=== PATIENT | female | born 1985 | race African-American/Black ===

== ENCOUNTER 2017-12-18 00:45 | Emergency (ER) | payer MEDICAID ==
[~2017-12-18] VITALS: Ht 167.6 cm; Wt 60.0 kg
[2017-12-18 00:46] VITALS: BP 126/85
[2017-12-18] MEDS ORDERED: LIDOCAINE-MPF 2%, 2ML ONE (01:01)
[2017-12-18] MEDS ORDERED: BUPIVACAINE 0.25% ONE (01:01)
== END 2017-12-18 01:35 | disposition home or self-care (01) ==
LOC: ED 01:00
DX: K04.7 Periapical abscess without sinus (principal); K02.9 Dental caries, unspecified; F12.90 Cannabis use, unspecified, uncomplicated
CPT/HCPCS: 64402; 99284

== ENCOUNTER 2019-05-14 12:01 | Emergency (ER) | payer MEDICAID ==
[~2019-05-14] VITALS: Ht 167.6 cm; Wt 59.0 kg
[2019-05-14] MEDS ORDERED: HYDROcodone/APAP 5/325 TABLET PO ONE (12:30)
[2019-05-14] MEDS ORDERED: HYDROcodone/APAP 5/325 TABLET ONE (12:30)
--- NOTE | 2019-05-14 12:32 | NUR ---
PT MEDICATED FOR PAIN PER JUL. PA TO BEDSIDE TO APPLY BONE WAX
[2019-05-14 13:45] VITALS: BP 111/72
--- NOTE | 2019-05-14 14:03 | NUR ---
pt reports pain resolved completely. pt given dc instructions and script, educated regarding rx for amoxicillin and naproxen. pt requests rx for ibuprofen, serafin christie notified. edpa agreed to change rx, pt informed. pt became frustruated while waiting and left before rx was changed. pt a&o, resps even and unlabored, amb to dc desk wtih steady gait accompanied by friend who is to drive her home.
== END 2019-05-14 14:04 | disposition home or self-care (01) ==
LOC: ED 13:58
DX: K08.89 Other specified disorders of teeth and supporting structures (principal)
CPT/HCPCS: 99283

== ENCOUNTER 2019-11-02 10:51 | Emergency (ER) | payer MEDICAID ==
[~2019-11-02] VITALS: Ht 167.6 cm; Wt 57.9 kg
[2019-11-02 11:08] VITALS: BP 134/83
--- NOTE | 2019-11-02 11:24 | NUR ---
PT HAS CO VB SINCE LAST NIGHT AFTER INTERCOURSE. PT LMP OCTOBER 05, TOOK PREG TEST AND WAS POSITIVE. DENIES CLOTS OR CRAMPING. LIGHT BLOOD THIS AM. PT NOT IN DISTRESS. PT DENIES PAIN OR DIZZINESS
[2019-11-02 11:48] LABS: BASOPHILS # (AUTO) 0.01 x10^3/uL (0-0.1); BASOPHILS % (AUTO) 0 % (0-1); EOSINOPHILS # (AUTO) 0.07 x10^3/uL (0-0.4); EOSINOPHILS % (AUTO) 1 % (1-7); LYMPHOCYTES # (AUTO) 1.29 x10^3/uL (1-3.4); LYMPHOCYTES % (AUTO) 22 % (22-44); MD NO; MEAN CORPUSCULAR HEMOGLOBIN 30.6 pg (27.0-34.8); MEAN CORPUSCULAR HGB CONC 33.2 g/dL (32.4-35.8); MEAN PLATELET VOLUME 7.4 fL (7.4-10.4); MONOCYTES % (AUTO) 9 % (2-9); NEUTROPHILS # (AUTO) 3.88 x10^3/uL (1.8-6.8); NEUTROPHILS % (AUTO) 68 % (42-75); PLATELET COUNT 297 x10^3/uL (130-400); RED BLOOD COUNT 4.89 x10^6/uL (3.82-5.3); RED CELL DISTRIBUTION WIDTH 13.5 % (9.6-15.2)
--- NOTE | 2019-11-02 12:30 | NUR ---
labs complete, us in process. pt resting
[2019-11-02 12:47] LABS: MICROSCOPIC AUTO
--- NOTE | 2019-11-02 13:47 | NUR ---
Patient/Caregiver given discharge instructions and they have confirmed that they understand the instructions. Patient ambulatory with steady gait.
== END 2019-11-02 13:49 | disposition home or self-care (01) ==
LOC: ED 11:58
DX: O20.0 Threatened abortion (principal); Z3A.00 Weeks of gestation of pregnancy not specified
CPT/HCPCS: 36415; 76801; 81001; 84702; 85025; 86901; 87086; 99284

== ENCOUNTER 2019-12-05 19:18 | Emergency (ER) | payer MEDICAID ==
[~2019-12-05] VITALS: Ht 167.6 cm; Wt 57.0 kg
[2019-12-05] MEDS ORDERED: ACETAMINOPHEN 325 MG TABLET PO ONE (19:30)
[2019-12-05] MEDS ORDERED: ONDA4TAB13 PO (19:33)
[2019-12-05] MEDS ORDERED: PRENATAL VITAMIN (19:33)
--- NOTE | 2019-12-05 19:33 | NUR ---
PT REPORTS SHE'S BEEN TAKING ZOFRAN 1 TAB PO Q 3 HOURS. RX DOSIN TAB PO Q 8 HOUR. LAST DOSE AT 1730. C/O LLQ CRAMPING, VAG BLEED (STARTED W/ DRIED BLOOD, THEN BRIGHT RED SPOTTING). HAD SONOGRAM 12/01/19 - NO PROBLEMS NOTED AT THAT TIME. OB APPT PENDING IN TWO WEEKS.
--- NOTE | 2019-12-05 19:39 | NUR ---
PT NOTIFIED OF NEED FOR URINE SPECIMEN; DENIES URGE TO VOID, AT THIS TIME. PT REFUSED PAIN MED, AT THIS TIME.
[2019-12-05 19:50] LABS: BASOPHILS # (AUTO) 0.06 x10^3/uL (0-0.1); BASOPHILS % (AUTO) 1 % (0-1); EOSINOPHILS # (AUTO) 0.09 x10^3/uL (0-0.4); EOSINOPHILS % (AUTO) 1 % (1-7); LYMPHOCYTES # (AUTO) 1.47 x10^3/uL (1-3.4); LYMPHOCYTES % (AUTO) 16 % (22-44); MD NO; MEAN CORPUSCULAR HGB CONC 32.2 g/dL (32.4-35.8); MEAN CORPUSCULAR VOLUME 93.3 fL (80-100); MONOCYTES # (AUTO) 0.82 x10^3/uL (0.2-0.8); MONOCYTES % (AUTO) 9 % (2-9); NEUTROPHILS # (AUTO) 6.67 x10^3/uL (1.8-6.8); NEUTROPHILS % (AUTO) 73 % (42-75); PLATELET COUNT 339 x10^3/uL (130-400); RED BLOOD COUNT 4.26 x10^6/uL (3.82-5.3); RED CELL DISTRIBUTION WIDTH 13.5 % (9.6-15.2)
[2019-12-05 20:04] LABS: ALBUMIN 3.2 g/dL (3.4-5.0); ANION GAP 8 mmol/L (5-15); CALCIUM 8.4 mg/dL (8.5-10.1); CHLORIDE 103 mmol/L (98-107)
--- NOTE | 2019-12-05 20:26 | NUR ---
TO U/S PER GUERRERO
[2019-12-05 20:56] LABS: MICROSCOPIC INDICATED
[2019-12-05 21:55] VITALS: BP 126/88
== END 2019-12-05 21:57 | disposition home or self-care (01) ==
LOC: ED 21:30
DX: O20.0 Threatened abortion (principal); O23.11 Infections of bladder in pregnancy, first trimester; Z3A.08 8 weeks gestation of pregnancy
CPT/HCPCS: 36415; 76801; 80048; 81001; 82040; 84702; 85025; 86901; 87086; 99284

== ENCOUNTER 2020-01-02 17:16 | Emergency (ER) | payer MEDICAID ==
[~2020-01-02] VITALS: Ht 170.2 cm; Wt 68.2 kg
[~2020-01-02 17:16] MED LIST: ONDA4TAB13 PO; PRENATAL VITAMIN
[2020-01-02] MEDS ORDERED: SODIUM CHLORIDE 0.9% 1,000 ML IV ONE (17:46)
[2020-01-02] MEDS ORDERED: ONDANSETRON 2MG/ML, 2ML IVPush ONE (18:00)
[2020-01-02] MEDS ORDERED: SODIUM CHLORIDE 0.9% 1,000ML IVBOLUS ONE (18:00)
[2020-01-02] MEDS ORDERED: SODIUM CHLORIDE FLUSH 10ML SYR IVF ONE (18:00)
[2020-01-02] MEDS ORDERED: ONDANSETRON 2MG/ML, 2ML ONE (18:04)
[2020-01-02 18:08] LABS: BASOPHILS # (AUTO) 0.01 x10^3/uL (0-0.1); BASOPHILS % (AUTO) 0 % (0-1); EOSINOPHILS # (AUTO) 0.03 x10^3/uL (0-0.4); EOSINOPHILS % (AUTO) 0 % (1-7); LYMPHOCYTES # (AUTO) 1.15 x10^3/uL (1-3.4); LYMPHOCYTES % (AUTO) 14 % (22-44); MD NO; MEAN CORPUSCULAR HEMOGLOBIN 30.2 pg (27.0-34.8); MEAN CORPUSCULAR HGB CONC 33.3 g/dL (32.4-35.8); MEAN CORPUSCULAR VOLUME 90.7 fL (80-100); MEAN PLATELET VOLUME 7.3 fL (7.4-10.4); MONOCYTES # (AUTO) 0.68 x10^3/uL (0.2-0.8); MONOCYTES % (AUTO) 8 % (2-9); NEUTROPHILS # (AUTO) 6.41 x10^3/uL (1.8-6.8); NEUTROPHILS % (AUTO) 78 % (42-75); PLATELET COUNT 348 x10^3/uL (130-400); RED BLOOD COUNT 4.64 x10^6/uL (3.82-5.3); RED CELL DISTRIBUTION WIDTH 13.3 % (9.6-15.2)
[2020-01-02 18:20] LABS: ALANINE AMINOTRANSFERASE 39 U/L (12-78); ALBUMIN 3.1 g/dL (3.4-5.0); ANION GAP 10 mmol/L (5-15); CALCIUM 8.7 mg/dL (8.5-10.1); CHLORIDE 106 mmol/L (98-107); CREATININE 0.67 mg/dL (0.55-1.02)
[2020-01-02 18:22] LABS: ALKALINE PHOSPHATASE 60 U/L (45-117); BILIRUBIN,TOTAL 0.5 mg/dL (0.2-1.0); TOTAL PROTEIN 6.5 g/dL (6.4-8.2)
[2020-01-02] MEDS ORDERED: METOCLOPRAMIDE 5 MG/ML, 2ML ONE (19:45)
[2020-01-02 19:59] LABS: MICROSCOPIC INDICATED
[2020-01-02] MEDS ORDERED: METOCLOPRAMIDE 5 MG/ML, 2ML IVPush ONE (20:00)
--- NOTE | 2020-01-02 21:00 | NUR ---
PT ABLE TO KEEP DOWN H2O. PT STATES SHE IS FEELING BETTER AFTER THE REGLAN. PROVIDER UPDATED.
--- NOTE | 2020-01-02 21:10 | NUR ---
assumed care of pt. report from Radhames ROSENTHAL. pt is and has been having N/V. pt has tolerated PO challenge after meds and reports that she is feeling better. no vomiting at this time. resting in position of comfort. IV infusing. no vaginal bleeding, no pain. no family at bedside
[2020-01-02 22:50] VITALS: BP 115/69
== END 2020-01-02 22:57 | disposition home or self-care (01) ==
LOC: ED 19:29
DX: O21.9 Vomiting of pregnancy, unspecified (principal); R10.84 Generalized abdominal pain; I10 Essential (primary) hypertension; Z3A.12 12 weeks gestation of pregnancy
CPT/HCPCS: 36415; 76801; 80053; 81001; 85025; 87086; 96361; 96374; 96375; 99285; J2405; J2765; J7030

== ENCOUNTER 2020-06-02 07:29 | Inpatient (IN) | payer MEDICAID ==
[~2020-06-02] VITALS: Ht 167.6 cm; Wt 69.0 kg
[2020-06-02] MEDS ORDERED: OXYTOCIN 30U/ 0.9% NaCL 500ML 500 ML ONE ×3 (07:49→20:24)
[2020-06-02] MEDS ORDERED: METOCLOPRAMIDE 5 MG/ML, 2ML IV ONE (08:00)
[2020-06-02] MEDS ORDERED: SODIUM CITRATE/CITRIC ACID 30 ML UDC PO ONE (08:00)
[2020-06-02] MEDS ORDERED: LACTATED RINGERS 1,000 ML IVBOLUS ONE (08:00)
[2020-06-02] MEDS ORDERED: NEWBORN KIT ONE (08:04)
[2020-06-02] MEDS ORDERED: SODIUM CITRATE/CITRIC ACID 15 ML UDC ONE (08:08)
[2020-06-02] MEDS ORDERED: METOCLOPRAMIDE 5 MG/ML, 2ML ONE (08:08)
[2020-06-02] MEDS ORDERED: PLEASE ENTER HEIGHT AND WEIGHT MC SCH (08:30)
[2020-06-02] MEDS ORDERED: morphine SULFATE/PF 0.5 MG/ML, 10ML ONE (08:30)
[2020-06-02 08:31] LABS: BASOPHILS % (AUTO) 1 % (0-1); EOSINOPHILS % (AUTO) 1 % (1-7); LYMPHOCYTES % (AUTO) 17 % (22-44); MEAN CORPUSCULAR HEMOGLOBIN 26.5 pg (27.0-34.8); MEAN CORPUSCULAR HGB CONC 32.5 g/dL (32.4-35.8); MEAN PLATELET VOLUME 7.4 fL (7.4-10.4); MONOCYTES % (AUTO) 10 % (2-9); NEUTROPHILS % (AUTO) 72 % (42-75); PLATELET COUNT 370 x10^3/uL (130-400); RED CELL DISTRIBUTION WIDTH 15.3 % (9.6-15.2)
[2020-06-02] MEDS ORDERED: DEXAMETHASONE 4 MG/ML, 1ML ONE (08:32)
[2020-06-02] MEDS ORDERED: CEFAZOLIN 1,000 MG ONE (08:32)
[2020-06-02] MEDS ORDERED: KETOROLAC 30 MG/1 ML ONE ×3 (08:32→23:16)
[2020-06-02] MEDS ORDERED: ONDANSETRON 2MG/ML, 2ML ONE (08:32)
[2020-06-02] MEDS ORDERED: SODIUM CHLORIDE 0.9% PF 10ML ONE (08:32)
[2020-06-02] MEDS ORDERED: OXYTOCIN 10 UNITS/ML, 1ML ONE (08:32)
[2020-06-02 08:38] LABS: MD NO
[2020-06-02] MEDS ORDERED: BUPIVACAINE 0.75% PF 10ML ONE (08:46)
[2020-06-02] MEDS ORDERED: MIDAZOLAM 1 MG/ML, 2ML ONE (08:48)
[2020-06-02] MEDS ORDERED: SIMETHICONE 80 MG CHEW TAB PO PRN (10:00)
[2020-06-02] MEDS ORDERED: morphine SULFATE 10 MG/ML, 1ML IVPush PRN (10:00)
[2020-06-02] MEDS ORDERED: TRANEXAMIC ACID 1,000 MG in SODIUM CHLORIDE 0.9% 100 ML IVPB ONE (10:00)
[2020-06-02] MEDS ORDERED: MORPHINE SULFATE 4 MG/ML, 1ML IVPush PRN (10:00)
[2020-06-02] MEDS: LACTATED RINGERS 1,000 ML IV SCH ×6 (10:00→20:00)
[2020-06-02] MEDS ORDERED: MISOPROSTOL 200 MCG TABLET SL PRN (10:00)
[2020-06-02] MEDS ORDERED: METHYLERGONOVINE 0.2 MG/ML IM PRN (10:00)
[2020-06-02] MEDS ORDERED: CARBOPROST TROMETHAMINE 250 MCG/ML, 1ML IM PRN (10:00)
[2020-06-02 10:02] VITALS: BP 124/76
[2020-06-02 10:24] LABS: AMPHETAMINE SCREEN, URINE Negative (Negative); BARBITURATE SCREEN, URINE Negative (Negative); BENZODIAZEPINE SCREEN, URINE Negative (Negative); CANNABINOID SCREEN, URINE Positive (Negative); COCAINE SCREEN, URINE Negative (Negative); METHADONE SCREEN, URINE Negative (Negative); OPIATE SCREEN, URINE Negative (Negative)
[2020-06-02 11:22] LABS: ALBUMIN 2.5 g/dL (3.4-5.0); ANION GAP 9 mmol/L (5-15); CALCIUM 8.9 mg/dL (8.5-10.1); CHLORIDE 109 mmol/L (98-107)
[2020-06-02] MEDS ORDERED: LABETALOL 5MG/ML, 20ML ONE (11:22)
[2020-06-02] MEDS ORDERED: MAGNESIUM SULF. PMX 20GM/500ML 500 ML IV ONE ×2 (11:23→20:24)
[2020-06-02] MEDS ORDERED: MAGNESIUM SULFATE PMX 4GM/100M 100 ML ONE (11:23)
[2020-06-02 11:25] LABS: ALANINE AMINOTRANSFERASE 35 U/L (12-78); ALKALINE PHOSPHATASE 194 U/L (45-117); BILIRUBIN,TOTAL 0.5 mg/dL (0.2-1.0); CREATININE 0.95 mg/dL (0.55-1.02); TOTAL PROTEIN 5.9 g/dL (6.4-8.2)
[2020-06-02] MEDS ORDERED: MAGNESIUM SULFATE PMX 4GM/100M 100 ML IVPB ONE ×2 (11:30)
[2020-06-02] MEDS ORDERED: hydrALAzine 20 MG/ML, 1ML IVPush ONE (11:30)
[2020-06-02] MEDS ORDERED: MAGNESIUM SULFATE PMX 2GM/50ML 50 ML IVPB ONE (11:30)
[2020-06-02] MEDS ORDERED: LABETALOL 5MG/ML, 20ML IVPush PRN ×3 (11:30)
[2020-06-02] MEDS: OXYTOCIN 30U/ 0.9% NaCL 500ML 500 ML IV SCH ×2 (11:30→21:23)
[2020-06-02] MEDS ORDERED: OXYcodone 5 MG/5 ML ORAL.SOL UDC ONE (11:57)
[2020-06-02] MEDS ORDERED: OXYcodone 5 MG/5 ML ORAL.SOL UDC PO PRN (12:00)
[2020-06-02] MEDS: MAGNESIUM SULF. PMX 20GM/500ML 500 ML IV SCH ×2 (12:05→21:30)
[2020-06-02] MEDS: PRENATAL VIT/IRON/FA 1 EACH TABLET PO SCH (13:13)
[2020-06-02] MEDS ORDERED: OXYcodone IR 5MG TABLET ONE ×2 (16:27→23:23)
[2020-06-02] MEDS: OXYcodone IR 5MG TABLET PO PRN ×2 (16:35→23:25)
[2020-06-02] MEDS: KETOROLAC 30 MG/1 ML IV SCH ×2 (16:36→23:19)
[2020-06-02 17:37] LABS: BASOPHILS % (AUTO) 0 % (0-1); EOSINOPHILS % (AUTO) 0 % (1-7); LYMPHOCYTES % (AUTO) 5 % (22-44); MD NO; MEAN CORPUSCULAR HEMOGLOBIN 26.5 pg (27.0-34.8); MEAN CORPUSCULAR HGB CONC 32.6 g/dL (32.4-35.8); MEAN PLATELET VOLUME 7.6 fL (7.4-10.4); MONOCYTES % (AUTO) 5 % (2-9); NEUTROPHILS % (AUTO) 90 % (42-75); PLATELET COUNT 368 x10^3/uL (130-400); RED BLOOD COUNT 4.03 x10^6/uL (3.82-5.3); RED CELL DISTRIBUTION WIDTH 15.7 % (9.6-15.2)
[2020-06-02 19:15] VITALS: BP 139/83
[2020-06-02 20:25] VITALS: BP 141/89
[2020-06-02 21:25] VITALS: BP 136/89
[2020-06-02 22:25] VITALS: BP 158/95
[2020-06-02] MEDS ORDERED: OXYcodone/APAP 5/325MG TABLET ONE (23:15)
[2020-06-02 23:30] VITALS: BP 145/91
[2020-06-03] VITALS (12 sets, daily range): BP systolic 131–157; BP diastolic 85–99
[2020-06-03] MEDS: LACTATED RINGERS 1,000 ML IV SCH ×7 (02:00→18:00)
[2020-06-03] MEDS ORDERED: OXYcodone IR 5MG TABLET ONE (03:59)
[2020-06-03] MEDS: KETOROLAC 30 MG/1 ML IV SCH ×4 (04:00→11:56)
[2020-06-03] MEDS: OXYcodone IR 5MG TABLET PO PRN ×4 (04:01→21:43)
[2020-06-03] MEDS ORDERED: KETOROLAC 30 MG/1 ML ONE (05:02)
[2020-06-03] MEDS: OXYTOCIN 30U/ 0.9% NaCL 500ML 500 ML IV SCH ×2 (06:00→16:00)
[2020-06-03 06:24] LABS: BASOPHILS % (AUTO) 1 % (0-1); EOSINOPHILS % (AUTO) 0 % (1-7); LYMPHOCYTES % (AUTO) 6 % (22-44); MEAN CORPUSCULAR HEMOGLOBIN 26.5 pg (27.0-34.8); MEAN CORPUSCULAR HGB CONC 33.1 g/dL (32.4-35.8); MEAN PLATELET VOLUME 7.5 fL (7.4-10.4); MONOCYTES % (AUTO) 8 % (2-9); NEUTROPHILS % (AUTO) 85 % (42-75); PLATELET COUNT 346 x10^3/uL (130-400); RED BLOOD COUNT 3.66 x10^6/uL (3.82-5.3); RED CELL DISTRIBUTION WIDTH 15.7 % (9.6-15.2)
[2020-06-03 06:31] LABS: ALANINE AMINOTRANSFERASE 33 U/L (12-78); ANION GAP 10 mmol/L (5-15); CHLORIDE 107 mmol/L (98-107); CREATININE 0.62 mg/dL (0.55-1.02); MD NO
[2020-06-03 06:33] LABS: ALKALINE PHOSPHATASE 182 U/L (45-117); BILIRUBIN,TOTAL 0.3 mg/dL (0.2-1.0); TOTAL PROTEIN 5.4 g/dL (6.4-8.2)
[2020-06-03] MEDS ORDERED: MAGNESIUM SULF. PMX 20GM/500ML 500 ML IV ONE (06:59)
[2020-06-03] MEDS: MAGNESIUM SULF. PMX 20GM/500ML 500 ML IV SCH (07:03)
[2020-06-03] MEDS ORDERED: LABETALOL 100 MG TABLET ONE (07:33)
[2020-06-03] MEDS: LABETALOL 100 MG TABLET PO SCH ×2 (07:35→17:43)
[2020-06-03] MEDS: PRENATAL VIT/IRON/FA 1 EACH TABLET PO SCH (09:00)
[2020-06-03] MEDS ORDERED: IBUPROFEN 600 MG TABLET ONE (12:00)
[2020-06-03] MEDS: IBUPROFEN 800 MG TABLET PO PRN ×2 (12:00→20:36)
[2020-06-03] MEDS ORDERED: IBUPROFEN 800 MG TABLET ONE (12:04)
[2020-06-04] MEDS: OXYTOCIN 30U/ 0.9% NaCL 500ML 500 ML IV SCH ×2 (02:00→12:00)
[2020-06-04] MEDS: LACTATED RINGERS 1,000 ML IV SCH ×5 (02:00→17:57)
[2020-06-04] MEDS: OXYcodone IR 5MG TABLET PO PRN ×4 (02:21→19:59)
[2020-06-04] MEDS: ACETAMINOPHEN 325 MG TABLET PO PRN ×4 (02:21→19:57)
[2020-06-04 02:24] VITALS: BP 143/96
[2020-06-04] MEDS: IBUPROFEN 800 MG TABLET PO PRN ×2 (05:49→14:14)
[2020-06-04 05:51] VITALS: BP 147/99
[2020-06-04 08:25] VITALS: BP 156/99
[2020-06-04] MEDS: LABETALOL 100 MG TABLET PO SCH ×2 (08:35→18:04)
[2020-06-04] MEDS: PRENATAL VIT/IRON/FA 1 EACH TABLET PO SCH (08:36)
[2020-06-04] MEDS: DOCUSATE 100 MG CAPSULE PO PRN ×2 (08:36→19:57)
[2020-06-04 09:51] VITALS: BP 131/88
[2020-06-04] MEDS ORDERED: IBUPROFEN 800 MG TABLET PO PRN (10:00)
[2020-06-04 18:00] VITALS: BP 152/100
[2020-06-04 21:00] VITALS: BP 135/88
[2020-06-05] VITALS (9 sets, daily range): BP systolic 147–166; BP diastolic 99–114
[2020-06-05] MEDS: OXYcodone IR 5MG TABLET PO PRN ×6 (01:02→20:10)
[2020-06-05] MEDS: IBUPROFEN 800 MG TABLET PO PRN ×2 (01:02→13:11)
[2020-06-05] MEDS: ACETAMINOPHEN 325 MG TABLET PO PRN ×5 (05:04→20:09)
[2020-06-05] MEDS ORDERED: LABETALOL 100 MG TABLET PO SCH (06:30)
[2020-06-05] MEDS: DOCUSATE 100 MG CAPSULE PO PRN ×2 (08:00→19:23)
[2020-06-05] MEDS ORDERED: LABETALOL 200 MG TABLET ONE (08:58)
[2020-06-05] MEDS ORDERED: LABETALOL 200 MG TABLET PO ONE (09:00)
[2020-06-05] MEDS: PRENATAL VIT/IRON/FA 1 EACH TABLET PO SCH (09:00)
[2020-06-05 12:35] LABS: BASOPHILS % (AUTO) 1 % (0-1); EOSINOPHILS % (AUTO) 1 % (1-7); LYMPHOCYTES % (AUTO) 11 % (22-44); MEAN CORPUSCULAR HGB CONC 32.1 g/dL (32.4-35.8); MEAN PLATELET VOLUME 7.2 fL (7.4-10.4); MONOCYTES % (AUTO) 7 % (2-9); NEUTROPHILS % (AUTO) 81 % (42-75); PLATELET COUNT 427 x10^3/uL (130-400); RED BLOOD COUNT 3.69 x10^6/uL (3.82-5.3); RED CELL DISTRIBUTION WIDTH 16.1 % (9.6-15.2)
[2020-06-05 12:36] LABS: MD NO
[2020-06-05 12:40] LABS: ALANINE AMINOTRANSFERASE 33 U/L (12-78); ALBUMIN 2.3 g/dL (3.4-5.0); ANION GAP 6 mmol/L (5-15); CALCIUM 8.5 mg/dL (8.5-10.1); CHLORIDE 109 mmol/L (98-107)
[2020-06-05 12:42] LABS: ALKALINE PHOSPHATASE 165 U/L (45-117); BILIRUBIN,TOTAL 0.4 mg/dL (0.2-1.0); CREATININE 0.85 mg/dL (0.55-1.02); TOTAL PROTEIN 5.8 g/dL (6.4-8.2)
[2020-06-05] MEDS: niFEDipine ER 30 MG TABLET.ER PO SCH (17:02)
[2020-06-05] MEDS: LABETALOL 200 MG TABLET PO SCH (17:53)
[2020-06-06] VITALS (11 sets, daily range): BP systolic 101–169; BP diastolic 66–123
[2020-06-06] MEDS: ACETAMINOPHEN 325 MG TABLET PO PRN ×3 (00:25→18:19)
[2020-06-06] MEDS: OXYcodone IR 5MG TABLET PO PRN ×5 (01:12→18:22)
[2020-06-06] MEDS ORDERED: LACTATED RINGERS 500 ML IVBOLUS ONE (01:15)
[2020-06-06] MEDS: IBUPROFEN 800 MG TABLET PO PRN ×2 (03:46→18:19)
[2020-06-06] MEDS: DOCUSATE 100 MG CAPSULE PO PRN ×2 (08:19→09:45)
[2020-06-06] MEDS: PRENATAL VIT/IRON/FA 1 EACH TABLET PO SCH (08:19)
[2020-06-06] MEDS: LABETALOL 200 MG TABLET PO SCH ×2 (08:19→18:20)
[2020-06-06] MEDS ORDERED: niFEDipine ER 30 MG TABLET.ER PO SCH (09:00)
[2020-06-06] MEDS: niFEDipine ER 30 MG TABLET.ER PO SCH (09:45)
[2020-06-07 02:30] VITALS: BP 147/98
[2020-06-07] MEDS: IBUPROFEN 800 MG TABLET PO PRN (02:30)
[2020-06-07] MEDS: OXYcodone IR 5MG TABLET PO PRN ×2 (02:31→08:43)
[2020-06-07 08:30] VITALS: BP 157/102
[2020-06-07] MEDS: ACETAMINOPHEN 325 MG TABLET PO PRN (08:37)
[2020-06-07] MEDS: LABETALOL 200 MG TABLET PO SCH (08:37)
[2020-06-07] MEDS: DOCUSATE 100 MG CAPSULE PO PRN (08:37)
[2020-06-07] MEDS: PRENATAL VIT/IRON/FA 1 EACH TABLET PO SCH (08:37)
[2020-06-07] MEDS: niFEDipine ER 30 MG TABLET.ER PO SCH (08:39)
[2020-06-07] MEDS ORDERED: LABE200T6 PO (09:36)
[2020-06-07] MEDS ORDERED: NIFE30TA2 PO (09:38)
[2020-06-07] MEDS ORDERED: DOCU-131 PO (09:40)
[2020-06-07] MEDS ORDERED: FERR325T5 PO (09:40)
[2020-06-07] MEDS ORDERED: IBUP-1222 PO (09:40)
[2020-06-07 12:00] VITALS: BP 137/96
== END 2020-06-07 12:00 | disposition home or self-care (01) | DRG 786 ==
LOC: LDOP 07:29 → LDIP 07:49 → 2NE 12:18 → 2NW 06-03 10:46
PROVIDERS: ADMIT Student in an Organized Health Care Education/Training Program; ATTEND Student in an Organized Health Care Education/Training Program
PROC: 10D00Z1 Extraction of Products of Conception, Low, Open Approach (ICD-10-PCS; principal; 2020-06-02)
DX: O69.81X0 Labor and delivery complicated by cord around neck, without compression, not applicable or unspecified (principal); O60.14X1 Preterm labor third trimester with preterm delivery third trimester, fetus 1; D62 Acute posthemorrhagic anemia; O14.14 Severe pre-eclampsia complicating childbirth; O30.043 Twin pregnancy, dichorionic/diamniotic, third trimester; O99.02 Anemia complicating childbirth; Z20.822 Contact with and (suspected) exposure to COVID-19; Z37.2 Twins, both liveborn; Z3A.34 34 weeks gestation of pregnancy
CPT/HCPCS: 36415; 80053; 80307; 83735; 85025; 86592; 86850; 86900; 87635; 88305; G0378; J0690; J1100; J1885; J2250; J2274; J2405; J7120; J2590; J2765; J3475

== ENCOUNTER 2020-08-20 13:26 | Inpatient (IN) | payer MEDICAID ==
[~2020-08-20] VITALS: Ht 167.6 cm; Wt 58.8 kg
[~2020-08-20 13:26] MED LIST changes: +DOCU-131 PO; +FERR325T5 PO; +IBUP-1222 PO; +LABE200T6 PO; +NIFE30TA2 PO
--- NOTE | 2020-08-20 13:52 | NUR ---
PT STATES SYMPTOMS BEGAN A HOUR AGO. BODY GOT VERY WEAK, DIZZY, AND EYE SIGHT STARTED TO GO OUT. PT WAS BECOMING SOB SO SHE LAID DOWN BECAUSE SHE FELT LIKE SHE WAS GOING TO FAINT. EYE SIGHT BEGAN TO COME BACK BUT HEADACHE BEGAN. PT WAS SCARED BECAUSE SHE COULD STAND UP SO SHE CAME TO ED.
--- NOTE | 2020-08-20 14:21 | NUR ---
PT WENT TO BATHROOM, GOT URINE SAMPLE, BACK IN BEST RESTING. VSS.
[2020-08-20] MEDS ORDERED: SODIUM CHLORIDE FLUSH 10ML SYR IVF ONE (14:30)
[2020-08-20] MEDS ORDERED: SODIUM CHLORIDE 0.9% 1,000ML IVBOLUS ONE (14:30)
[2020-08-20 14:33] LABS: MICROSCOPIC NOT IND
[2020-08-20 14:43] LABS: BASOPHILS % (AUTO) 2 % (0-1); EOSINOPHILS % (AUTO) 1 % (1-7); LYMPHOCYTES % (AUTO) 32 % (22-44); MEAN CORPUSCULAR HEMOGLOBIN 25.9 pg (27.0-34.8); MEAN CORPUSCULAR HGB CONC 32.1 g/dL (32.4-35.8); MEAN PLATELET VOLUME 8.2 fL (7.4-10.4); MONOCYTES % (AUTO) 7 % (2-9); NEUTROPHILS % (AUTO) 59 % (42-75); PLATELET COUNT 338 x10^3/uL (130-400); RED BLOOD COUNT 4.96 x10^6/uL (3.82-5.3); RED CELL DISTRIBUTION WIDTH 19.2 % (9.6-15.2)
[2020-08-20 14:48] LABS: MD NO
[2020-08-20 14:54] LABS: ALBUMIN 4.2 g/dL (3.4-5.0); ANION GAP 4 mmol/L (5-15); CALCIUM 9.5 mg/dL (8.5-10.1); CHLORIDE 114 mmol/L (98-107); CREATININE 1.43 mg/dL (0.55-1.02)
[2020-08-20 15:15] LABS: TROPONIN I < 0.015 ng/mL (0.000-0.045)
--- NOTE | 2020-08-20 16:21 | NUR ---
PT LYING IN BED TALKING TO SISTER ON THE PHONE. VSS
--- NOTE | 2020-08-20 17:05 | NUR ---
GAVE REORT TO MIGUEL ROSENTHAL
--- NOTE | 2020-08-20 17:17 | NUR ---
MED REC UPDATED. PT DOES NOT TAKE ANY MEDS BESIDES IRON. PHARMACY UPDATED
[2020-08-20] MEDS ORDERED: FERR324T5 PO (17:18)
[2020-08-20] MEDS: ENOXAPARIN 40 MG/0.4 ML SQ SCH (17:30)
[2020-08-20] MEDS ORDERED: DOCUSATE 100 MG CAPSULE PO PRN (17:30)
[2020-08-20] MEDS ORDERED: LACTATED RINGERS 1,000 ML IV SCH (17:30)
[2020-08-20] MEDS ORDERED: KETOROLAC 30 MG/1 ML IV PRN (17:30)
[2020-08-20] MEDS ORDERED: hydrALAzine 20 MG/ML, 1ML IVPush PRN (17:30)
[2020-08-20 17:37] LABS: HCT (SEDRATE) 38.1 % (34.6-47.8)
[2020-08-20 17:40] VITALS: BP 130/88
[2020-08-20 17:45] LABS: FREE T4 (FREE THYROXINE) 1.14 ng/dL (0.76-1.46); TROPONIN I < 0.015 ng/mL (0.000-0.045)
[2020-08-20] MEDS: ACETAMINOPHEN 325 MG TABLET PO PRN ×2 (17:54→22:22)
[2020-08-20] MEDS: ONDANSETRON 2MG/ML, 2ML IVPush PRN (18:33)
[2020-08-20] MEDS ORDERED: MELATONIN 5 MG TABLET PO PRN (21:00)
[2020-08-20 21:46] VITALS: BP 108/74
[2020-08-20 23:19] LABS: TROPONIN I < 0.015 ng/mL (0.000-0.045)
[2020-08-21 01:54] VITALS: BP 104/66
[2020-08-21 04:39] LABS: BASOPHILS % (AUTO) 1 % (0-1); EOSINOPHILS % (AUTO) 1 % (1-7); LYMPHOCYTES % (AUTO) 45 % (22-44); MD NO; MEAN CORPUSCULAR HGB CONC 32.3 g/dL (32.4-35.8); MEAN PLATELET VOLUME 8.4 fL (7.4-10.4); MONOCYTES % (AUTO) 9 % (2-9); NEUTROPHILS % (AUTO) 44 % (42-75); PLATELET COUNT 289 x10^3/uL (130-400); RED BLOOD COUNT 4.34 x10^6/uL (3.82-5.3); RED CELL DISTRIBUTION WIDTH 18.6 % (9.6-15.2)
[2020-08-21 04:51] LABS: ALANINE AMINOTRANSFERASE 17 U/L (12-78); ALBUMIN 3.3 g/dL (3.4-5.0); ANION GAP 4 mmol/L (5-15); CALCIUM 8.5 mg/dL (8.5-10.1); CHLORIDE 116 mmol/L (98-107); CREATININE 1.12 mg/dL (0.55-1.02)
[2020-08-21 04:53] LABS: ALKALINE PHOSPHATASE 52 U/L (45-117); BILIRUBIN,TOTAL 0.4 mg/dL (0.2-1.0)
[2020-08-21 06:59] VITALS: BP 120/79
[2020-08-21] MEDS ORDERED: GADOTERATE 7.5 MMOL/15ML SYR ONE (11:45)
[2020-08-21 13:07] VITALS: BP 129/86
[2020-08-21] MEDS: LISINOPRIL 5 MG TABLET PO SCH (15:02)
[2020-08-21] MEDS: ENOXAPARIN 40 MG/0.4 ML SQ SCH (17:30)
[2020-08-21 20:06] VITALS: BP 110/76
[2020-08-21 21:26] VITALS: BP 118/87
[2020-08-22 00:34] VITALS: BP 110/72
[2020-08-22 05:20] LABS: ANION GAP 4 mmol/L (5-15); CALCIUM 8.7 mg/dL (8.5-10.1); CHLORIDE 114 mmol/L (98-107); CREATININE 1.14 mg/dL (0.55-1.02)
[2020-08-22] MEDS ORDERED: POTASSIUM CHLORIDE 20 MEQ TAB.ER.PRT PO ONE (06:30)
[2020-08-22 07:36] VITALS: BP 120/83
[2020-08-22] MEDS: LISINOPRIL 5 MG TABLET PO SCH (07:51)
[2020-08-22] MEDS ORDERED: REGADENOSON 0.4 MG/5 ML SYRINGE ONE (08:02)
[2020-08-22] MEDS: SPIRONOLACTONE 25 MG TABLET PO SCH (11:03)
[2020-08-22] MEDS: CARVEDILOL 3.125 MG TABLET PO SCH ×2 (11:03→18:15)
[2020-08-22 12:56] LABS: MICROSCOPIC NOT IND
[2020-08-22 13:12] VITALS: BP 108/74
[2020-08-22] MEDS: ENOXAPARIN 40 MG/0.4 ML SQ SCH (17:30)
[2020-08-22 18:12] VITALS: BP 113/75
[2020-08-22 19:20] VITALS: BP 119/87
[2020-08-23] VITALS (7 sets, daily range): BP systolic 102–117; BP diastolic 59–82
[2020-08-23] MEDS ORDERED: NITROGLYCERIN 0.4 MG/SPRAY SL PRN (03:30)
[2020-08-23] MEDS ORDERED: NITROGLYCERIN 0.4 MG BOTTLE (25 TABS) SL PRN (03:30)
[2020-08-23] MEDS: ACETAMINOPHEN 325 MG TABLET PO PRN (03:34)
[2020-08-23] MEDS: CARVEDILOL 3.125 MG TABLET PO SCH ×2 (06:33→17:08)
[2020-08-23] MEDS: SPIRONOLACTONE 25 MG TABLET PO SCH (09:02)
[2020-08-23] MEDS: LISINOPRIL 5 MG TABLET PO SCH (09:03)
[2020-08-23] MEDS ORDERED: MIDAZOLAM 1 MG/ML, 5ML ONE (15:34)
[2020-08-23] MEDS ORDERED: LIDOCAINE 2%, 20ML ONE (15:34)
[2020-08-23] MEDS ORDERED: FENTANYL PF 100 MCG/2ML ONE (15:34)
[2020-08-23] MEDS ORDERED: HEPARIN 1,000 UNITS/ML, 10ML ONE (15:36)
[2020-08-23] MEDS ORDERED: VERAPAMIL 2.5 MG/ML, 2ML ONE (15:36)
[2020-08-23] MEDS: ENOXAPARIN 40 MG/0.4 ML SQ SCH (17:11)
[2020-08-24] MEDS: ACETAMINOPHEN 325 MG TABLET PO PRN (01:45)
[2020-08-24 01:56] VITALS: BP 111/78
[2020-08-24] MEDS: CARVEDILOL 3.125 MG TABLET PO SCH ×2 (06:22→17:56)
[2020-08-24 06:23] VITALS: BP 101/65
[2020-08-24 07:15] VITALS: BP 105/49
[2020-08-24] MEDS ORDERED: POTASSIUM CHLORIDE 20 MEQ TAB.ER.PRT PO ONE (08:00)
[2020-08-24] MEDS: LISINOPRIL 5 MG TABLET PO SCH (08:55)
[2020-08-24] MEDS: SPIRONOLACTONE 25 MG TABLET PO SCH (08:55)
[2020-08-24 12:09] VITALS: BP 123/87
[2020-08-24] MEDS: ENOXAPARIN 40 MG/0.4 ML SQ SCH (17:57)
[2020-08-24 19:17] VITALS: BP 116/82
[2020-08-25 00:35] VITALS: BP 117/80
[2020-08-25] MEDS: CARVEDILOL 3.125 MG TABLET PO SCH ×2 (06:09→18:07)
[2020-08-25 07:33] VITALS: BP 98/67
[2020-08-25] MEDS: LISINOPRIL 5 MG TABLET PO SCH (08:21)
[2020-08-25] MEDS: SPIRONOLACTONE 25 MG TABLET PO SCH (08:21)
[2020-08-25] MEDS: FUROSEMIDE 20 MG TABLET PO SCH (10:38)
[2020-08-25 11:35] LABS: ANION GAP 5 mmol/L (5-15); CALCIUM 9.3 mg/dL (8.5-10.1); CHLORIDE 110 mmol/L (98-107)
[2020-08-25 11:36] LABS: CREATININE 1.22 mg/dL (0.55-1.02)
[2020-08-25] MEDS: POTASSIUM CHLORIDE 20 MEQ TAB.ER.PRT PO SCH (12:29)
[2020-08-25 14:01] VITALS: BP 106/76
[2020-08-25] MEDS: ENOXAPARIN 40 MG/0.4 ML SQ SCH (18:07)
[2020-08-25 18:39] VITALS: BP 104/70
[2020-08-26 00:59] VITALS: BP 99/62
[2020-08-26] MEDS: CARVEDILOL 3.125 MG TABLET PO SCH ×2 (06:02→17:03)
[2020-08-26 06:40] VITALS: BP 93/60
[2020-08-26] MEDS: LISINOPRIL 5 MG TABLET PO SCH (08:29)
[2020-08-26] MEDS: FUROSEMIDE 20 MG TABLET PO SCH (08:29)
[2020-08-26] MEDS: SPIRONOLACTONE 25 MG TABLET PO SCH (08:30)
[2020-08-26] MEDS: POTASSIUM CHLORIDE 20 MEQ TAB.ER.PRT PO SCH (08:30)
[2020-08-26 12:03] VITALS: BP 108/71
[2020-08-26] MEDS: ENOXAPARIN 40 MG/0.4 ML SQ SCH (17:03)
[2020-08-26 21:20] VITALS: BP 95/66
[2020-08-27 02:35] VITALS: BP 100/66
[2020-08-27] MEDS: CARVEDILOL 3.125 MG TABLET PO SCH ×2 (05:59→21:00)
[2020-08-27 07:32] VITALS: BP 99/65
[2020-08-27] MEDS: POTASSIUM CHLORIDE 20 MEQ TAB.ER.PRT PO SCH (08:25)
[2020-08-27] MEDS: SPIRONOLACTONE 25 MG TABLET PO SCH (09:05)
[2020-08-27] MEDS: FUROSEMIDE 20 MG TABLET PO SCH (09:06)
[2020-08-27] MEDS: LISINOPRIL 5 MG TABLET PO SCH (09:36)
[2020-08-27] MEDS: ONDANSETRON 2MG/ML, 2ML IVPush PRN ×2 (10:26→18:55)
[2020-08-27 12:10] VITALS: BP 102/70
[2020-08-27] MEDS: ACETAMINOPHEN 325 MG TABLET PO PRN ×2 (13:14→18:11)
[2020-08-27 14:43] LABS: BASOPHILS % (AUTO) 1 % (0-1); EOSINOPHILS % (AUTO) 2 % (1-7); LYMPHOCYTES % (AUTO) 27 % (22-44); MEAN CORPUSCULAR HEMOGLOBIN 25.7 pg (27.0-34.8); MEAN CORPUSCULAR HGB CONC 31.4 g/dL (32.4-35.8); MONOCYTES % (AUTO) 8 % (2-9); NEUTROPHILS % (AUTO) 63 % (42-75); PLATELET COUNT 299 x10^3/uL (130-400); RED CELL DISTRIBUTION WIDTH 18.3 % (9.6-15.2)
[2020-08-27 14:53] LABS: ALANINE AMINOTRANSFERASE 29 U/L (12-78); ALBUMIN 4.2 g/dL (3.4-5.0); ANION GAP 6 mmol/L (5-15); CALCIUM 9.9 mg/dL (8.5-10.1); CHLORIDE 107 mmol/L (98-107); CREATININE 1.46 mg/dL (0.55-1.02)
[2020-08-27 14:56] LABS: ALKALINE PHOSPHATASE 67 U/L (45-117); BILIRUBIN,TOTAL 0.4 mg/dL (0.2-1.0); TOTAL PROTEIN 7.8 g/dL (6.4-8.2)
[2020-08-27 15:16] LABS: ANISOCYTOSIS 1+; MD MORPH REVIEW ONLY
[2020-08-27 15:18] LABS: <PLATELET ESTIMATE> ADEQUATE; LARGE PLATELETS 1+; OVALOCYTES 1+
[2020-08-27] MEDS: ENOXAPARIN 40 MG/0.4 ML SQ SCH (17:30)
[2020-08-27 20:14] VITALS: BP 133/87
[2020-08-27] MEDS ORDERED: PROMETHAZINE 25 MG/ML, 1ML IM ONE (21:30)
[2020-08-27] MEDS ORDERED: HYDROmorphone 1 MG/ML, 1ML INJ IM ONE (22:30)
[2020-08-28 01:11] VITALS: BP 117/77
[2020-08-28] MEDS: ONDANSETRON 2MG/ML, 2ML IVPush PRN ×2 (01:35→20:57)
[2020-08-28 06:38] VITALS: BP 103/68
[2020-08-28] MEDS: CARVEDILOL 3.125 MG TABLET PO SCH ×2 (06:41→17:36)
[2020-08-28] MEDS: ACETAMINOPHEN 325 MG TABLET PO PRN (06:46)
[2020-08-28 07:34] LABS: ANION GAP 8 mmol/L (5-15); CALCIUM 9.9 mg/dL (8.5-10.1); CHLORIDE 106 mmol/L (98-107); CREATININE 1.51 mg/dL (0.55-1.02)
[2020-08-28] MEDS ORDERED: CEFTRIAXONE PMX 1GM/50ML 50 ML IV SCH (08:00)
[2020-08-28] MEDS: FUROSEMIDE 20 MG TABLET PO SCH (08:18)
[2020-08-28] MEDS: SPIRONOLACTONE 25 MG TABLET PO SCH (08:19)
[2020-08-28] MEDS: SODIUM CHLORIDE 0.9% 1,000 ML IV SCH (08:34)
[2020-08-28] MEDS: LISINOPRIL 5 MG TABLET PO SCH (08:35)
[2020-08-28] MEDS ORDERED: PANTOPRAZOLE 40 MG IV IVPush SCH (09:00)
[2020-08-28] MEDS: METRONIDAZOLE PMX 500MG/100ML 100 ML IV SCH ×2 (09:36→17:37)
[2020-08-28 13:19] VITALS: BP 104/69
[2020-08-28] MEDS: ENOXAPARIN 40 MG/0.4 ML SQ SCH (17:30)
[2020-08-28 19:31] VITALS: BP 119/79
[2020-08-28 20:37] LABS: HCG UR SG 1.032 (1.003-1.030)
[2020-08-29 00:12] VITALS: BP 90/59
[2020-08-29] MEDS: METRONIDAZOLE PMX 500MG/100ML 100 ML IV SCH (01:11)
[2020-08-29] MEDS: CARVEDILOL 3.125 MG TABLET PO SCH (05:32)
[2020-08-29 05:33] VITALS: BP 105/70
[2020-08-29 05:40] LABS: BASOPHILS % (AUTO) 1 % (0-1); EOSINOPHILS % (AUTO) 1 % (1-7); LYMPHOCYTES % (AUTO) 20 % (22-44); MEAN CORPUSCULAR HEMOGLOBIN 26.1 pg (27.0-34.8); MEAN CORPUSCULAR HGB CONC 32.4 g/dL (32.4-35.8); MEAN PLATELET VOLUME 8.4 fL (7.4-10.4); MONOCYTES % (AUTO) 9 % (2-9); NEUTROPHILS % (AUTO) 70 % (42-75); PLATELET COUNT 230 x10^3/uL (130-400); RED BLOOD COUNT 4.85 x10^6/uL (3.82-5.3); RED CELL DISTRIBUTION WIDTH 18.4 % (9.6-15.2)
[2020-08-29 05:42] LABS: MD NO
[2020-08-29 05:51] LABS: ANION GAP 6 mmol/L (5-15); CHLORIDE 108 mmol/L (98-107)
[2020-08-29 05:52] LABS: CREATININE 1.36 mg/dL (0.55-1.02)
[2020-08-29] MEDS ORDERED: PANTOPRAZOLE 40MG TABLET PO SCH (06:00)
[2020-08-29] MEDS: SODIUM CHLORIDE 0.9% 1,000 ML IV SCH ×2 (06:17→10:08)
[2020-08-29] MEDS ORDERED: CARV3.1212 PO (07:39)
[2020-08-29] MEDS ORDERED: SPIR25TA PO (07:39)
[2020-08-29] MEDS ORDERED: LISI5TAB7 PO (07:39)
[2020-08-29 08:57] VITALS: BP 98/63
[2020-08-29] MEDS: SPIRONOLACTONE 25 MG TABLET PO SCH (09:00)
[2020-08-29] MEDS: FUROSEMIDE 20 MG TABLET PO SCH (09:00)
[2020-08-29] MEDS: LISINOPRIL 5 MG TABLET PO SCH (09:00)
== END 2020-08-29 11:13 | disposition home or self-care (01) | DRG 286 ==
LOC: ED 15:58 → INTOOBSV 16:19 → OBSVTOIN 16:19 → EDIP 16:19 → 5SO 17:14 → DCLOUNGE 08-29 11:00
PROVIDERS: ADMIT Hospitalist; ATTEND Family Medicine
PROC: 4A023N7 Measurement of Cardiac Sampling and Pressure, Left Heart, Percutaneous Approach (ICD-10-PCS; principal; 2020-08-23)
PROC: B2111ZZ Fluoroscopy of Multiple Coronary Arteries using Low Osmolar Contrast (ICD-10-PCS; 2020-08-23)
PROC: B245ZZZ Ultrasonography of Left Heart (ICD-10-PCS; 2020-08-23)
DX: I11.0 Hypertensive heart disease with heart failure (principal); I50.21 Acute systolic (congestive) heart failure; O90.3 Peripartum cardiomyopathy; N17.9 Acute kidney failure, unspecified; T46.5X6A Underdosing of other antihypertensive drugs, initial encounter; T50.2X5A Adverse effect of carbonic-anhydrase inhibitors, benzothiadiazides and other diuretics, initial encounter; R94.31 Abnormal electrocardiogram [ECG] [EKG]; E87.6 Hypokalemia; F41.9 Anxiety disorder, unspecified; G89.29 Other chronic pain; Z80.8 Family history of malignant neoplasm of other organs or systems; Z82.49 Family history of ischemic heart disease and other diseases of the circulatory system; Z87.891 Personal history of nicotine dependence; Z91.14 Patient's other noncompliance with medication regimen; Z98.891 History of uterine scar from previous surgery; Z91.018 Allergy to other foods; Z79.899 Other long term (current) drug therapy; Z79.01 Long term (current) use of anticoagulants; Z79.891 Long term (current) use of opiate analgesic
CPT/HCPCS: 36415; 70450; 70553; 71045; 74176; 78452; 80048; 80053; 81003; 81025; 82040; 82962; 83690; 83735; 83880; 84100; 84439; 84443; 84484; 84703; 85025; 85651; 93005; 93017; 93306; 93458; 99156; C1769; C1894; G0378; J0696; J1170; J1644; J1650; J2250; J2405; J2785; J3010; A9502; A9575; C9113; J7030; J7120; Q9967

== ENCOUNTER 2020-09-07 09:14 | Emergency (ER) | payer MEDICAID ==
[~2020-09-07] VITALS: Ht 167.6 cm; Wt 58.0 kg
[~2020-09-07 09:14] MED LIST changes: +CARV3.1212 PO; +FERR324T5 PO; +LISI5TAB7 PO; +SPIR25TA PO
[2020-09-07 09:23] VITALS: BP 136/88
--- NOTE | 2020-09-07 09:35 | NUR ---
assumed pt care.
--- NOTE | 2020-09-07 09:37 | NUR ---
Pt reports she is here d/t tooth pain that started yesterday, she reports there is a hole in her tooth.
== END 2020-09-07 10:34 | disposition home or self-care (01) ==
LOC: ED 10:23
DX: K02.9 Dental caries, unspecified (principal); K08.89 Other specified disorders of teeth and supporting structures; I11.0 Hypertensive heart disease with heart failure; I50.9 Heart failure, unspecified
CPT/HCPCS: 99283

== ENCOUNTER 2020-09-09 02:55 | Emergency (ER) | payer MEDICAID ==
[~2020-09-09] VITALS: Ht 167.6 cm; Wt 58.5 kg
--- NOTE | 2020-09-09 03:01 | NUR ---
THIS IS A 35F BIB EMS FROM HOME FOR SUDDEN ONSET CP, PT HAS RECENT DX OF CHF AND CARDIOMYOPATHY. PT GIVEN [employer]. LIFE VEST IN PLACE UPON ARRIVAL, VSS PT CONNECTED TO ALL MONITORING. ERP TO BEDSIDE
[2020-09-09] MEDS ORDERED: ONDANSETRON 2MG/ML, 2ML IVPush ONE (03:30)
[2020-09-09] MEDS ORDERED: SODIUM CHLORIDE FLUSH 10ML SYR IVF ONE (03:30)
[2020-09-09] MEDS ORDERED: MORPHINE SULFATE 4 MG/ML, 1ML IVPush PRN (03:30)
--- NOTE | 2020-09-09 03:38 | NUR ---
PT OFFERED PAIN MEDICATION AND NAUSEA MEDS, STS WANTS TO HOLD OFF AT THIS TIME. ERP UPDATED
[2020-09-09 03:43] LABS: BASOPHILS % (AUTO) 1 % (0-1); EOSINOPHILS % (AUTO) 1 % (1-7); LYMPHOCYTES % (AUTO) 31 % (22-44); MEAN CORPUSCULAR HEMOGLOBIN 25.9 pg (27.0-34.8); MEAN CORPUSCULAR HGB CONC 31.9 g/dL (32.4-35.8); MEAN PLATELET VOLUME 8.1 fL (7.4-10.4); MONOCYTES % (AUTO) 8 % (2-9); NEUTROPHILS % (AUTO) 59 % (42-75); PLATELET COUNT 308 x10^3/uL (130-400); RED BLOOD COUNT 4.58 x10^6/uL (3.82-5.3); RED CELL DISTRIBUTION WIDTH 17.9 % (9.6-15.2)
[2020-09-09 03:48] LABS: MD NO
[2020-09-09 04:00] LABS: ALANINE AMINOTRANSFERASE 25 U/L (12-78); ALBUMIN 3.7 g/dL (3.4-5.0); ANION GAP 7 mmol/L (5-15); CALCIUM 8.7 mg/dL (8.5-10.1); CHLORIDE 112 mmol/L (98-107); CREATININE 1.26 mg/dL (0.55-1.02)
[2020-09-09 04:05] LABS: ALKALINE PHOSPHATASE 54 U/L (45-117); BILIRUBIN,TOTAL 0.3 mg/dL (0.2-1.0); TOTAL PROTEIN 6.6 g/dL (6.4-8.2); TROPONIN I < 0.015 ng/mL (0.000-0.045)
[2020-09-09] MEDS ORDERED: ONDANSETRON 2MG/ML, 2ML ONE (04:30)
--- NOTE | 2020-09-09 04:33 | NUR ---
PT MEDICATED FOR NAUSEA AT THIS TIME, STILL STS DOES NOT WANT PAIN MEDS BUT WILL CALL IF SHE DOES
[2020-09-09 05:40] VITALS: BP 115/78
[2020-09-09] MEDS ORDERED: OMNIPAQUE 350 MG/ML, 100ML BOTTLE ONE (05:40)
--- NOTE | 2020-09-09 06:13 | NUR ---
PT RESTING ON GUERRERO CHRISTINE, AWAITING CTA RESULTS
== END 2020-09-09 07:19 | disposition home or self-care (01) ==
LOC: MERGE 02:55 → ED 07:02
DX: R07.89 Other chest pain (principal); R11.2 Nausea with vomiting, unspecified; I11.0 Hypertensive heart disease with heart failure; I50.9 Heart failure, unspecified; I42.9 Cardiomyopathy, unspecified
CPT/HCPCS: 36415; 71045; 71275; 80053; 83880; 84484; 84703; 85025; 85379; 93005; 96374; 99285; J2405; Q9967

== ENCOUNTER 2020-11-02 19:59 | Emergency (ER) | payer MEDICAID ==
[~2020-11-02] VITALS: Ht 170.2 cm; Wt 60.0 kg
--- NOTE | 2020-11-02 20:33 | NUR ---
PT WHEELED TO ROOM AND PLACED ON O2 SAT PROBE. PT SAYS SHE FELT LIKE FAINTING THIS MORNING, AND HAD CHEST PAIN, AND ALSO LIKE SOMETHING WAS SQUEEZING HER BRAIN. PT CALM AND COOPERATIVE, PLACED ON CR MONITOR, AND USING HER PHONE. NO ACUTE DISTRESS AT THIS TIME, AND WAITING ON MD TO SEE PT.
--- NOTE | 2020-11-02 21:11 | NUR ---
EKG DONE IN TRIAGE. NO SECOND EKG NEEDED.
--- NOTE | 2020-11-02 21:23 | NUR ---
SLEEVE FIXER TO BEDSIDE TO DRAW BLOOD.
[2020-11-02 21:39] LABS: BASOPHILS % (AUTO) 1 % (0-1); EOSINOPHILS % (AUTO) 2 % (1-7); LYMPHOCYTES % (AUTO) 41 % (22-44); MEAN CORPUSCULAR HEMOGLOBIN 27.4 pg (27.0-34.8); MEAN CORPUSCULAR HGB CONC 32.7 g/dL (32.4-35.8); MEAN PLATELET VOLUME 8.5 fL (7.4-10.4); MONOCYTES % (AUTO) 9 % (2-9); NEUTROPHILS % (AUTO) 47 % (42-75); PLATELET COUNT 272 x10^3/uL (130-400); RED BLOOD COUNT 4.68 x10^6/uL (3.82-5.3); RED CELL DISTRIBUTION WIDTH 19.5 % (9.6-15.2)
[2020-11-02 21:45] LABS: ANION GAP 7 mmol/L (5-15); CALCIUM 8.9 mg/dL (8.5-10.1); CHLORIDE 106 mmol/L (98-107); CREATININE 1.07 mg/dL (0.55-1.02)
[2020-11-02 21:46] LABS: ALANINE AMINOTRANSFERASE 27 U/L (12-78); ALBUMIN 3.6 g/dL (3.4-5.0)
[2020-11-02 21:50] LABS: ALKALINE PHOSPHATASE 63 U/L (45-117); BILIRUBIN,TOTAL 0.3 mg/dL (0.2-1.0); TOTAL PROTEIN 7.4 g/dL (6.4-8.2); TROPONIN I < 0.015 ng/mL (0.000-0.045)
[2020-11-02 23:25] VITALS: BP 102/70
--- NOTE | 2020-11-02 23:26 | NUR ---
DR. SCHAFER TO BEDSIDE TO SPEAK WITH PT.
--- NOTE | 2020-11-03 00:27 | NUR ---
F/U AND D/C INSTRUCTIONS GIVEN TO PT AND SHE V/U. PT AMBULATED TO DISCHARGE DESK.
== END 2020-11-03 00:29 | disposition home or self-care (01) ==
LOC: ED 11-03 00:22
DX: R42 Dizziness and giddiness (principal); R07.89 Other chest pain; I42.9 Cardiomyopathy, unspecified; R55 Syncope and collapse; I11.0 Hypertensive heart disease with heart failure; I50.9 Heart failure, unspecified
CPT/HCPCS: 36415; 71045; 80053; 83880; 84484; 84703; 85025; 93005; 99285